=== PATIENT | male | born 1960 | race Two or more races ===

== ENCOUNTER 2024-12-07 10:53 | Inpatient (IN) | payer OTHER ==
[~2024-12-07] VITALS: Ht 180.3 cm; Wt 113.4 kg
[2024-12-07] MEDS ORDERED: CARVEDILOL12.5 M1 PO (12:37)
[2024-12-07] MEDS ORDERED: METFORMIN HCL1000 M2 PO (12:37)
[2024-12-07] MEDS ORDERED: LOSARTAN-HCTZ1 EAC1 PO (12:38)
[2024-12-07 12:41] VITALS: BP 150/95
[2024-12-13] MEDS ORDERED: OxyCODONE HCL 5 MG TABLET (ROXICODONE) PO PRN (10:15)
[2024-12-13] MEDS ORDERED: ONDANSETRON HCL 2 MG/ML VIAL IV PRN (10:15)
[2024-12-13] MEDS ORDERED: CEFAZOLIN SODIUM 1,000 MG VIAL ONE (11:48)
[2024-12-13] MEDS ORDERED: TRANEXAMIC ACID 100MG/1ML (1000MG) AMPUL IV ONE (11:48)
[2024-12-13] MEDS ORDERED: BUPIVACAINE HCL/MPF 0.5% 30ML VIAL ONE (11:55)
[2024-12-13] MEDS ORDERED: KETOROLAC TROMETHAMINE 60 MG VIAL IM ONE (11:55)
[2024-12-13] MEDS ORDERED: ACETAMINOPHEN 325 MG TABLET PO SCH (12:00)
[2024-12-13] MEDS ORDERED: CEFAZOLIN SODIUM 1,000 MG VIAL IV SCH (12:00)
[2024-12-13] MEDS ORDERED: MORPHINE SULFATE 4 MG/ML CARTRIDGE IV SCH (12:00)
[2024-12-13] MEDS ORDERED: CARVEDILOL 12.5 MG TABLET PO SCH (17:00)
[2024-12-13] MEDS ORDERED: GABAPENTIN 100 MG CAPSULE PO SCH (21:00)
[2024-12-13] MEDS ORDERED: ORPHENADRINE CITRATE 100 MG TABLET PO SCH (21:00)
[2024-12-14 00:57] VITALS: BP 109/69; O2SAT 100
[2024-12-14 06:55] LABS: HEMATOCRIT 34.5 % (39.0-48.0); HEMOGLOBIN 11.7 g/dL (13-16.00); MEAN CELL VOLUME 85.8 fL (80.0-100.00); MEAN CORPUSCULAR HEMOGLOBIN 29.1 pg (27.00-32.0); MEAN CORPUSCULAR HGB CONC 33.9 g/dl (32.0-36.0); PLATELET COUNT 174 K/uL (150-450); RED BLOOD COUNT 4.02 M/uL (4.00-6.00); RED CELL DISTRIBUTION WIDTH 13.5 % (11.5-14.5)
[2024-12-14 08:00] VITALS: BP 127/72; O2SAT 92
[2024-12-14] MEDS ORDERED: APIXABAN 2.5 MG TABLET PO SCH (09:00)
[2024-12-14] MEDS ORDERED: LOSARTAN POTASSIUM 100 MG TABLET PO SCH (09:00)
[2024-12-14 11:54] LABS: COVID-19 AG NEGATIVE (NEGATIVE)
[2024-12-14 12:05] LABS: ALBUMIN 3.2 gm/dL (3.4-5.0); BILIRUBIN TOTAL 0.93 mg/dL (0.3-1.2); CALCIUM 8.4 mg/dL (8.5-10.1); CREATININE SERUM 0.79 mg/dL (0.70-1.30); GFR 99.38; GLOBULINA 2.5 G/DL (2.4-3.5); POTASSIUM 3.79 mEq/L (3.5-5.1); TOTAL PROTEIN 5.7 gm/dL (6.4-8.2)
[2024-12-14] MEDS ORDERED: SOD FERRIC GLUC COMPLX/SUCROSE 62.5 MG/5 ML AMPUL IV SCH (12:32)
[2024-12-14] MEDS ORDERED: Cyanocobalamin/Mecobalamin 1 TAB.SL SL NR (12:50)
[2024-12-14 16:00] VITALS: BP 118/76; O2SAT 95
[2024-12-14] MEDS ORDERED: VITAMIN B COMPLEX 1 EACH PO SCH (17:00)
[2024-12-15 01:16] VITALS: BP 112/77; O2SAT 96
[2024-12-15 06:35] LABS: HEMATOCRIT 32.7 % (39.0-48.0); HEMOGLOBIN 11.6 g/dL (13-16.00); MEAN CELL VOLUME 84.1 fL (80.0-100.00); MEAN CORPUSCULAR HEMOGLOBIN 29.8 pg (27.00-32.0); MEAN CORPUSCULAR HGB CONC 35.5 g/dl (32.0-36.0); PLATELET COUNT 175 K/uL (150-450); RED BLOOD COUNT 3.89 M/uL (4.00-6.00); RED CELL DISTRIBUTION WIDTH 13.3 % (11.5-14.5)
[2024-12-15 08:25] VITALS: BP 132/85; O2SAT 95
[2024-12-15] MEDS ORDERED: Cyanocobalamin/Mecobalamin 1 TAB.SL SL SCH (09:00)
[2024-12-15 16:00] VITALS: BP 112/72; O2SAT 96
== END 2024-12-15 16:40 | disposition home health service (06) | DRG 470 ==
LOC: O/R 12-13 06:25 → SURG 12-13 09:45
PROVIDERS: ADMIT Orthopaedic Surgery; ATTEND Orthopaedic Surgery
PROC: 0QUD0KZ Supplement Right Patella with Nonautologous Tissue Substitute, Open Approach (ICD-10-PCS; 2024-12-13)
PROC: 0SRC0JZ Replacement of Right Knee Joint with Synthetic Substitute, Open Approach (ICD-10-PCS; principal; 2024-12-13 09:45)
DX: M17.11 Unilateral primary osteoarthritis, right knee (principal); D62 Acute posthemorrhagic anemia; M85.661 Other cyst of bone, right lower leg; E11.9 Type 2 diabetes mellitus without complications; Z79.84 Long term (current) use of oral hypoglycemic drugs